=== PATIENT | female | born 1980 | race African-American/Black ===

== ENCOUNTER 2017-04-28 03:52 | Emergency (ER) | payer MEDICARE, MEDICAID ==
[~2017-04-28] VITALS: Ht 165.1 cm; Wt 65.0 kg
[~2017-04-28 03:52] MED LIST: AMOX500T PO; CLIN1CAP5 PO; POTA-243 PO
[2017-04-28 03:55] VITALS: BP 150/84; PULSE 99; RESP 16; TEMP 98.7; O2SAT 100
[2017-04-28] MEDS ORDERED: HIV MEDICATION (04:00)
[2017-04-28] MEDS ORDERED: [UNRECOGNIZED DRUG - OTHER] (04:00)
[2017-04-28] MEDS ORDERED: KETOROLAC TROMETHAMINE 60 MG/2 ML (IM) VIAL IM ONE (04:30)
[2017-04-28] MEDS ORDERED: NAPR500 PO (04:43)
--- NOTE | 2017-04-28 04:43 | PD ---
HPI Chief Complaint: Numbness/Tingling Time Seen by Provider: 04:14 Travel History International Travel<30 days: No Contact w/Intl Traveler<30days: No Traveled to known affect area: No History of Present Illness HPI So 36 year-old woman who presents to the emergency department complaining of numbness in her legs. She states that she's had intermittent pain in her left thigh with numbness in her leg ongoing for quite some time. She states it bothers her after she is on her legs all day at work for 12 hours or more. She has a nodule on her anterior left thigh that is been bothering her along with this. She states she's gotten a little bit bigger over time and crates a lot of pain and irritation. She is not sure what it is. Her primary doctor is looked at it. History Past Medical History Narrative Medical HIV Tetanus Vaccination: > 5 Years Influenza Vaccination: No : 1 Para: 1 Past Surgical History Surgical History: No Previous Surgery Social History Alcohol Use: Yes (OCCASSIONAL) Tobacco Use: Yes (1/2 PPD) Allergies-Medications (Allergen,Severity, Reaction): Coded Allergies: Penicillin (Verified Allergy, Severe, SOB AND HIVES, 04/28/17) Sulfa (Verified Allergy, Severe, HIVES, 04/28/17) Diflucan (Verified Allergy, Intermediate, Rash, 04/28/17) Reported Meds & Prescriptions Reported Meds & Active Scripts Active Reported [Hiv Medication] [Trovata] Review of Systems Except as stated in HPI: all other systems reviewed are Neg Physical Exam Narrative Normal gait. GENERAL: Well-appearing 36 year-old woman, no acute distress. SKIN: Focused skin assessment warm/dry. CARDIOVASCULAR: Regular rate and rhythm. No murmur appreciated. RESPIRATORY: No accessory muscle use. Clear to auscultation. Breath sounds equal bilaterally. GASTROINTESTINAL: Abdomen soft, non-tender, nondistended. Hepatic and splenic margins not palpable. MUSCULOSKELETAL: No obvious deformities. An anterior light diet is a palpable nodule near the neurovascular bundle. Good palpable femoral pulses. She has full strength and full range of motion of the left leg at the hip and knee. There is no significant tenderness sensations intact to light touch throughout. Normal gait. Data Data Last Documented VS Vital Signs Date Time Temp Pulse Resp B/P Pulse Ox O2 Delivery O2 Flow Rate FiO2 04/28/17 04:02 16 04/28/17 03:55 98.7 99 150/84 100 Room Air Orders Ketorolac Inj (Toradol Inj) (04/28/17 04:30) [facility] Medical Decision Making Medical Screen Exam Complete: Yes Emergency Medical Condition: Yes Differential Diagnosis Cyst, nodule, lymph node, other Narrative Course Medical decision making This a 36 year-old woman presents to the emergency department complaining of numbness in her left leg. She has a tender nodule in anterior left thigh. I'm not sure what this nodule is. It doesn't seem to be a hernia. Doesn't seem to be a cyst. She denies previous injury to suggest fat necrosis. It doesn't appear to be inflamed although it is a little bit tender. We'll recommend anti- inflammatory pain medicines outpatient follow-up. Diagnosis Primary Impression: Left leg pain Additional Instructions: Take Naprosyn as prescribed. Follow-up with her primary doctor in 2-4 days. Return to the emergency department for any new or worsening symptoms. Med/Other Pt SpecificInfo: Prescription(s) given Scripts Naproxen (Naprosyn)500 Mg [id number] Mg PO BID PRN (PAIN SCALE 1 TO 10) #20 TAB Prov:Jarrell Parra MD 04/28/17 Disposition: 01 DISCHARGE HOME Condition: Stable Jarrell Parra MD Apr 28, 2017 04:43
== END 2017-04-28 05:10 | disposition home or self-care (01) ==
LOC: NEPC 03:52
DX: M79.605 Pain in left leg (principal); R20.0 Anesthesia of skin; F17.200 Nicotine dependence, unspecified, uncomplicated; Z79.899 Other long term (current) drug therapy; Z88.0 Allergy status to penicillin; Z88.2 Allergy status to sulfonamides
CPT/HCPCS: 96372; 99284; J1885

== ENCOUNTER 2017-05-26 09:40 | Emergency (ER) | payer OTHER, MEDICARE, MEDICAID ==
[~2017-05-26] VITALS: Ht 165.1 cm; Wt 65.0 kg
[~2017-05-26 09:40] MED LIST changes: -AMOX500T PO; -CLIN1CAP5 PO; +HIV MEDICATION; +NAPR500 PO; -POTA-243 PO; +[UNRECOGNIZED DRUG - OTHER]
[2017-05-26 09:42] VITALS: BP 140/92; PULSE 74; RESP 16; TEMP 98.9; O2SAT 100
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
[2017-05-26] MEDS ORDERED: MOBI7.5T PO (09:58)
== END 2017-05-26 10:27 | disposition home or self-care (01) ==
LOC: NEPK 09:40
DX: M25.562 Pain in left knee (principal); V49.40XA Driver injured in collision with unspecified motor vehicles in traffic accident, initial encounter; Y92.488 Other paved roadways as the place of occurrence of the external cause
CPT/HCPCS: 99283